=== PATIENT | male | born 1935 | race Hispanic/Latino ===

== ENCOUNTER 2018-05-25 20:41 | Emergency (ER) | payer OTHER ==
[~2018-05-25] VITALS: Ht 154.9 cm; Wt 63.5 kg
[~2018-05-25 20:41] MED LIST: AMLODIPINE BESY10 MG PO; ATORVASTATIN CA40 MG PO; KEPPRA500 MG PO; LEVOTHYROXINE75 MCG PO; LOSARTAN POTASS50 MG PO; PANTOPRAZOLE SO40 MG PO
--- NOTE | 2018-05-25 21:45 | Diagnostic Imaging Report ---
EXAMINATION: Head CT without contrast. HISTORY:Headache for 2 weeks. COMPARISON:None. TECHNIQUE: Multidetector axial images were obtained from the foramen magnum to the vertex without contrast. The images were reconstructed using brain and bone algorithms. Thin section brain images were reformatted into coronal and sagittal planes. Dose modulation, iterative reconstruction, and/or weight based adjustment of the mA/kV was utilized to reduce the radiation dose to as low as reasonably achievable. Intravenous contrast: None IMAGE QUALITY: Acceptable. FINDINGS: Skull/scalp: Expected postoperative changes from prior bilateral frontoparietal temporal craniotomy. Parenchyma: Nonspecific bilateral frontoparietal patchy white matter hypodensity are likely related to small vessel ischemic changes. No acute hemorrhage, mass or acute major vascular territorial infarct. Arteries: No density suggestive of thrombosis. Dural sinuses: No abnormal density suggestive of thrombosis. Ventricles: Mild compensated dilatation due to volume loss. No acute hydrocephalus. Extra-axial spaces: No abnormal density. Brain volume: Moderate generalized cerebral volume loss, with mild predominant involvement of anteromedial aspect of bilateral temporal lobes. Craniocervical junction: No mass, Chiari malformation, or basilar invagination. Sella: No mass. Paranasal/mastoid sinuses: 8 mm exophytic osseous lesion projecting within the right frontal sinus possibly represents osteoma/exostosis. IMPRESSION: 1. No acute intracranial abnormality, particularly no acute hemorrhage, mass or acute major vascular territorial infarct. 2. Mild supratentorial white matter microvascular ischemic changes. 3. Expected postoperative changes from bilateral frontoparietal temporal craniotomy. 4. Moderate generalized cerebral volume loss, with mild predominant involvement of anteromedial aspect of bilateral temporal lobes, which can be seen in patients without Alzheimer's disease in appropriate clinical setting. Signed by: Dr. Ketty Calixto M.D. on 05/25/2018 9:41 PM
[2018-05-25 22:43] VITALS: BP 143/78
== END 2018-05-25 22:49 | disposition home or self-care (01) ==
LOC: ER 20:41
DX: R51 Headache (principal); J01.10 Acute frontal sinusitis, unspecified; I10 Essential (primary) hypertension; E78.5 Hyperlipidemia, unspecified
CPT/HCPCS: 70450; 99283